=== PATIENT | female | born 2000 | race Caucasian/White ===

== ENCOUNTER 2024-11-03 09:05 | Outpatient (OUT) | payer SELFPAY ==
[2024-11-03 09:57] LABS: Basophils Absolute Auto 0.1 10^3/uL (0.0-0.1); Basophils Percent Auto 1.4 % (0.2-2.0); Eosinophils Absolute Auto 0.1 10^3/uL (0.0-0.7); Hematocrit 41.9 % (36.0-48.0); Hemoglobin 14.4 g/dL (12.0-16.0); Immature Granulocytes Abs Auto 0.01 10^3/uL (0.00-0.03); Immature Granulocytes Pct Auto 0.1 % (0.0-0.5); Lymphocytes Absolute Auto 2.4 10^3/uL (1.2-3.8); Lymphocytes Percent Auto 34.2 % (20.5-60.0); Mean Corpuscular HGB Conc 34.4 g/dL (29.9-35.2); Mean Corpuscular Hemoglobin 30.4 pg (26.7-34.0); Mean Corpuscular Volume 88.6 fL (81.0-99.0); Mean Platelet Volume 10.8 fL (9.5-13.5); Monocytes Absolute Auto 0.4 10^3/uL (0.3-0.8); Monocytes Percent Auto 6.2 % (1.7-12.0); Neutrophils Percent Auto 56.1 % (43.0-75.0); Platelet Count 296 10^3/uL (150-450); Red Blood Count 4.73 10^6/uL (4.20-5.40); Red Cell Distribution Width 11.5 % (11.0-15.0); White Blood Count 7.1 10^3/uL (4.0-11.0)
[2024-11-03 10:23] LABS: Alanine Aminotransferase <6 U/L (14-59); Albumin Globulin Ratio 1.5; Albumin Level 4.6 g/dL (3.4-5.0); Alkaline Phosphatase 56 U/L (46-116); Anion Gap 11.8; Aspartate Amino Transferase 12 U/L (15-37); BUN Creatinine Ratio 15.4; Bilirubin Total 0.6 mg/dL (0.2-1.0); Calcium 9.6 mg/dL (8.5-10.1); Carbon Dioxide 31.1 mmol/L (21.0-32.0); Chloride 102 mmol/L (98-107); Chol HDL Ratio 2.4; Cholesterol 140 mg/dL (<=200); Estimated GFR (African America >60 (>=60 mL/min/1.73m^2); Estimated GFR (Non-African Ame >60 (>=60 mL/min/1.73m^2); Free T3 2.73 pg/mL (2.18-3.98); Globulin 3.1 g/dL; Glucose 87 mg/dL (74-106); HDL Cholesterol 59 mg/dL (40-60); LDL Cholesterol Calculated 66.6 mg/dL; Potassium 3.9 mmol/L (3.5-5.1); Sodium 141 mmol/L (136-145); Thyroid Stimulating Hormone 1.862 uIU/mL (0.358-3.740); Total Protein 7.7 g/dL (6.4-8.2); Triglycerides 72 mg/dL (<=150); VLDL CHOLESTEROL 14.4 mg/dL
[2024-11-03 10:41] LABS: Estimated Average Glucose 105 mg/dL; Glycohemoglobin A1C 5.3 % (4.5-6.2)
== END 2024-11-03 09:06 | disposition home or self-care (01) ==
PROVIDERS: PCP Family Medicine; Visit Provider Family Medicine
DX: K21.9 Gastro-esophageal reflux disease without esophagitis (principal); R55 Syncope and collapse; R73.09 Other abnormal glucose; D64.9 Anemia, unspecified
CPT/HCPCS: 36415; 80053; 80061; 83036; 83540; 84436; 84443; 84481; 85025

== ENCOUNTER 2025-06-27 11:25 | Outpatient (OUT) | payer MEDICAID, SELFPAY ==
--- OUTSIDE RECORDS SUMMARY | 2024-03-02 07:00 | XMS_ITS ---
Author Organization [facility] in [place] Address [address] [place] [address] Care Team Providers Care Hand Alterations Tailor Name Role Phone Mariely Munroe Primary Care Provider [phone] CJ MUNROE Unavailable [phone] REASON FOR VISIT weight loss/near syncopy Encounters Encounter Location Date Provider Diagnosis [id number] [place] [address] 03/02/2024 CJ MUNROE Plan Of Treatment No Information Progress Notes * Randolph PALACIOS LDOB:[birth year] (25 yo F)Acc No.[id number]:03/02/2024 UNLOCKED PROGRESS NOTE Progress Note Patient: Randolph ESCALANTE Provider: Diego Munroe M.D. :2000 A ge:23 Y S ex:Female Date:03/02/2024 Address:[address] [place], [place] [id number] Pcp:Mariely Munroe Subjective: * Chief Complaints: * 1 . Weight loss/near syncopy. * Medical History: Objective: * Vitals: Assessment: Plan: * Treatment: * * Electronic signature of MARIELY MUNROE MD on 06/27/2025 at 11:32 AM EDT Sign off status: Pending Visit Status: N /S N/C (No Show/No Charge) * Provider: Diego Munroe M.D. Date: 03/02/2024 Generated for Franco urbano/Ashwin/Kenaitting on: 1 11:32 AM EDT
--- OUTSIDE RECORDS SUMMARY | 2025-06-27 11:31 | XMS_ITS | Clinical Summary ---
Author Organization [facility] Address [address], [address] [place] [address] Care Team Providers Care Salesperson Burial Needs Name Role Phone Olvin Burch MD Primary Care Provider [phone] Allergies No known active allergies Medications MV & Min w/FA-DHA ( ADULT GUMMY/DHA/FA PO) Take by mouth Active Active Problems Problem Noted Date Diagnosed Date contractions 08/29/2018 Family History Medical History Relation Name Comments Diabetes Maternal Grandmother Relation Name Status Comments Maternal Grandmother Social History Tobacco Use Types Packs/Day Years Used Date Smoking Tobacco: Never Comments No Sex and Gender Information Value Date Recorded Sex Assigned at Not on file Legal Sex Female 9:45 PM EST Gender Identity Not on file Sexual Orientation Not on file Last Filed Vital Signs Vital Sign Reading Time Taken Comments Blood Pressure 128/73 08/29/2018 7:46 PM EST Pulse 95 08/29/2018 7:46 PM EST Temperature 37.1 C (98.8 F) 08/29/2018 8:03 PM EST Respiratory Rate 15 09/28/2014 11:22 AM EST Oxygen Saturation 98% 09/28/2014 11:22 AM EST Inhaled Oxygen Concentration - - Weight 59 kg (130 lb) 08/29/2018 8:03 PM EST Height 157.5 cm (5' 2 ) 08/29/2018 8:03 PM EST Body Mass Index 23.78 08/29/2018 8:03 PM EST Plan of Treatment Not on file Insurance [facility] Advance Directives * Full Code (Latest Code Status on File) Date Activated Date Inactivated Comments 08/29/2018 7:41 PM 08/29/2018 11:22 PM Care Teams Salesperson Burial Needs Relationship Specialty Start Date End Date Olvin Burch MD [address] [place] [address] PCP - General 02/26/13
--- OUTSIDE RECORDS SUMMARY | 2025-06-27 11:31 | XMS_ITS | Encounter Summary ---
Author Organization [facility] Address [id number] [place] [address] Care Team Providers Care Repairer Typewriter Name Role Phone Olvin Burch MD Primary Care Provider [phone] Encounter Details Date Type Department Care Team (Latest Contact Info) Description 06/24/2025 Travel Social History Tobacco Use Types Packs/Day Years Used Date Smoking Tobacco: Former Cigarettes Q uit: 04/15/2018 Vaping/E-cigarettes Smokeless Tobacco: Never Comments:currently vape Alcohol Use Standard Drinks/Week Comments No 0 (1 standard drink = 0.6 oz pur e alcohol) AUDIT-C Answer Date Recorded Frequency of Alcohol Consumption Never 05/28/2020 Average Number of Drinks Not on file 020 Frequency of Binge Drinking Not on file 05/16 Childcare Answer Date Recorded Childcare Unknown 02/24/2019 Employment Answer Date Recorded Employment Unknown 02/24/2019 Hunger Screening Answer Date Recorded Within the past 12 months we worried whether our food would run out before we got money to buy more. Never True 06/24/2025 Within the past 12 months th e food we bought just didn't last and we didn't have money to get more. Never True 06/24/2025 Purpose - Life Answer Date Recorded Purpose and direction in life Unknown Comments No Sex and Gender Information Value Date Recorded Sex Assigned at Not on file Legal Sex Female 11:59 AM EDT Gender Identity Not on file Sexual Orientation Not on file documented as of this encounter Plan of Treatment Not on file documented as of this encounter Visit Diagnoses Not on filedocumented in this encounter Additional Health Concerns Infection Onset Date Last Indicated Resolved Time Respiratory Rule-Out 06/24/2025 06/24/2025 025 12:04 PM EDT documented as of this encounter Care Teams Repairer Typewriter Relationship Specialty Start Date End Date Olvin Burch MD PCP - General 05/11/18 documented as of this encounter
--- OUTSIDE RECORDS SUMMARY | 2025-06-27 11:31 | XMS_ITS | Clinical Summary ---
Author Organization [facility] tem Address [id number] [address] [place] [address] Care Team Providers Care Assistant Tennis Professional Name Role Phone Olvin Burch MD Primary Care Provider [phone] Allergies No known active allergies Medications ondansetron ODT (ZOFRAN-ODT) 4 mg disintegrating tablet Dissolve 1 tablet (4 mg total) on tongue every 8 (eight) hours as needed for nausea for up to 10 doses. 10 tablet 1 Active magnesium citrate (CITROMA) solution Take 296 mL by mouth once for 1 dose. 296 mL 5 06/24/20 25 Active Problems No known active problems Encounters Date Type Department Care Team Description 06/24/2025 10:16 AM EDT - 06/24/2025 12:35 PM EDT Emergency [facility] - Emergency [address] [place] [id number] Carlin Figueroa DO Constipation, unspecified constipation type (Primary Dx) Discharge Disposition: Home 06/24/2025 Travel from Last 3 Months Family History Medical History Relation Name Comments Diabetes Maternal Grandfather Hypertension Maternal Grandfather Diabetes Maternal Grandmother Hypertension Paternal Grandfather Diabetes Paternal Grandmother Hypertension Paternal Grandmother Relation Name Status Comments Maternal Grandfather Maternal Grandmother Paternal Grandfather Paternal Grandmother Social History Tobacco Use Types Packs/Day [...] Sign Reading Time Taken Comments Blood Pressure 98/57 06/24/2025 12:30 PM EDT Pulse 70 06/24/2025 12:30 PM EDT Temperature 36.8 C (98.2 F) 06/24/2025 10:23 AM EDT Respiratory Rate 18 06/24/2025 12:30 PM EDT Oxygen Saturation 100% 06/24/2025 12:30 PM EDT Inhaled Oxygen Concentration - - Weight 44 kg (97 lb) 06/24/2025 10:23 AM EDT Height 157.5 cm (5' 2 ) 03/12/2022 10:25 AM EDT Body Mass Index 17.74 03/12/2022 10:25 AM EDT Plan of Treatment Health Maintenance Due Date Last Done Comments Depression Screening 2014 Chlamydia Screening 01/24/2023 01/24/2022 Pap Smear 2023 DTaP,Tdap and Td Vaccines (7 - Td or Tdap) 05/12/2024 05/12/2014, 05/15/2006, 05/31/2004, Additional history exists Influenza Vaccine 05/16/2025 Adult BMI Screening 06/24/2026 06/24/2025 Tobacco Screening 06/24/2026 06/24/2025 Medical Devices Not on file Procedures Procedure Name Priority Date/Time Associated Diagnosis Comments CT ABDOMEN AND PELVIS W CONT STAT 06/24/2025 11:31 AM EDT POCT , URINE (NUCG) Routine 06/24/2025 10:48 AM EDT POCT NURSING URINE MACROSCOPIC UA Routine 06/24/2025 10:45 AM EDT EXTRA TUBES BLUE TOP Routine 06/24/2025 10:41 AM EDT EXTRA TUBES Routine 06/24/2025 10:41 AM EDT ER EXTRA URINE MARBLE STAT 06/24/2025 10:41 AM EDT ER EXTRA URINE CULTURE STAT 10:41 AM EDT ER EXTRA URINE STAT 06/24/2025 10:41 AM EDT MAGNESIUM STAT 06/24/2025 10:41 AM EDT LACTATE W/ REFLEX STAT 06/24/2025 10: 41 AM EDT LIPASE STAT 06/24/2025 10:41 AM EDT C-REACTIVE PROTEIN STAT 06/24/2025 10 :41 AM EDT COMPREHENSIVE METABOLIC PANEL STAT 06/24/2025 10:41 AM EDT CBC WITH AUTO DIFFERENTIAL STAT 06/24/2025 10:41 AM EDT SARS/FLU A+B/RSV BY NAAT/MOLECULAR (M4RT COLLECTION TUBE) STAT 06/24/2025 10:41 AM EDT CHLAMYDIA/GC BY PCR ANATOLY SWAB Routine 01/24/2022 11:53 AM EDT Pelvic pain from Last 3 Months or Most Recently Relevant to Health Maintenance Results * CT abdomen and pelvis with contrast (06/24/2025 11:31 AM EDT) Anatomical Region Laterality Modality Body, Abdomen, Body Covera N/A Compu kirill Tomography 06/24/2025 11:3 1 AM EDT Narrative 06/24/2025 11:44 AM EDT STUDY: ENHANCED CT OF THE ABDOMEN AND PELVIS CLINICAL INFORMATION: Age: 25 years History: Abdominal pain. PROCEDURE: Enhanced CT examination of the abdomen and pelvis was performed after administration of intravenous contrast. Enteric contrast was not administered. All CT scans at this facility use dose modulation, iterative reconstruction, and/or weight based dosing when appropriate to reduce radiation dose to as low as reasonably achievable. INTRAVENOUS CONTRAST: 100 mL of Omnipaque 300 COMPARISON: CT abdomen/pelvis dated 02/27/2021 FINDINGS: LOWER THORAX: The lung bases are clear. The heart is normal in size. LIVER: Normal in size and configuration. No suspicious mass. BILE DUCTS: No intrahepatic or extrahepatic bile duct dilation. GALLBLADDER: No calcified stones. Normal wall thickness. PANCREAS: Normal parenchymal attenuation. No main pancreatic duct dilation. SPLEEN: Normal parenchymal attenuation. No splenomegaly. ADRENAL GLANDS: No adrenal nodules. KIDNEYS/URETERS: No hydroureteronephrosis. No suspicious renal mass. BLADDER: Unremarkable. REPRODUCTIVE ORGANS: Retroflexed uterus. No adnexal mass. BOWEL: No disproportionate dilation of the small or large bowel. The appendix is unremarkable. Large colonic stool burden. PERITONEUM/RETROPERITONEUM: No fluid collection, ascites, or pneumoperitoneum. LYMPH NODES: No abdominopelvic lymphadenopathy by size criteria. VESSELS: No abdominal aortic aneurysm. ABDOMINAL/PELVIC WALL: Unremarkable. BONES: No suspicious osseous lesions. IMPRESSION: No acute abdominopelvic abnormality. Large colonic stool burden may represent constipation. Recommend clinical correlation. Finalized by Yaneth Medina MD on 06/24/2025 11:44 AM Procedure Note Yaneth Medina MD - 06/24/2025 STUDY: ENHANCED CT OF THE ABDOMEN AND PELVIS CLINICAL INFORMATION: Age: 25 years History: Abdominal pain. PROCEDURE: Enhanced CT examination of the abdomen and pelvis was performedafter administration of intravenous contrast. Enteric contrast was notadministered. All CT scans at this facility use dose modulation, iterativereconstruction, and/or weight based dosing when appropriate to reduceradiation dose to as low as reasonably achievable. INTRAVENOUS CONTRAST: 100 mL of Omnipaque 300 COMPARISON: CT abdomen/pelvis dated 02/27/2021 FINDINGS: LOWER THORAX: The lung bases are clear. The heart is normal in size. LIVER: Normal in size and configuration. No suspicious mass. BILE DUCTS: No intrahepatic or extrahepatic bile duct dilation. GALLBLADDER: No calcified stones. Normal wall thickness. PANCREAS: Normal parenchymal attenuation. No main pancreatic ductdilation. SPLEEN: Normal parenchymal attenuation. No splenomegaly. ADRENAL GLANDS: No adrenal nodules. KIDNEYS/URETERS: No hydroureteronephrosis. No suspicious renal mass. BLADDER: Unremarkable. REPRODUCTIVE ORGANS: Retroflexed uterus. No adnexal mass. BOWEL: No disproportionate dilation of the small or large bowel. Theappendix is unremarkable. Large colonic stool burden. PERITONEUM/RETROPERITONEUM: No fluid collection, ascites, orpneumoperitoneum. LYMPH NODES: No abdominopelvic lymphadenopathy by size criteria. VESSELS: No abdominal aortic aneurysm. ABDOMINAL/PELVIC WALL: Unremarkable. BONES: No suspicious osseous lesions. IMPRESSION: No acute abdominopelvic abnormality. Large colonic stool burden mayrepresent constipation. Recommend clinical correlation. Finalized by Yaneth Medina MD on 06/24/2025 11:44 AM us Carlin Figueroa DO IMG CT ORDERABLES Final Result * POCT , urine (06/24/2025 10:48 AM EDT) POC Urine Negative Negative, Indeterminate 06/24/2025 10:54 AM EDT [facility] Urine 06/24/2025 10:4 8 AM EDT 06/24/2025 10:54 AM EDT us Carlin Figueroa DO POINT OF CARE TEST ORDE ROSALINA Final Result [facility] [address] [place] [address], [place] * POCT Nursing Urine Macroscopic UA (06/24/2025 10:45 AM EDT) POC Urine Specific Nunda 1.015 1.010, 1.015, 1.020, 1.025 06/24/2025 10:47 AM EDT [facility] POC Urine Leukocyte Esterase Negative Negative 06/24/2025 10:47 AM EDT [facility] POC Urine Nitrite Negative Negative 06/24/2025 10:47 AM EDT [facility] POC Urine pH 7.0 5.0, 6.0, 6.5, 7.0, 7.5, 8.0, 8.5, 5.5 06/24/2025 10:47 AM EDT [facility] POC Urine Protein Negative Negative 06/24/2025 10:47 AM EDT [facility] POC Urine Glucose Negative Negative 06/24/2025 10:47 AM EDT [facility] POC Urine Ketones Negative Negative 06/24/2025 10:47 AM EDT [facility] POC Urine Urobilinogen 0.2 E.U./dL 06/24/2025 10:47 AM EDT [facility] POC Urine Bilirubin Negative Negative 06/24/2025 10:47 AM EDT [facility] POC Urine Blood/HGB Negative Negative 06/24/2025 10:47 AM EDT [facility] Urine 06/24/2025 10:4 5 AM EDT 06/24/2025 10:47 AM EDT us Carlin Figueroa DO POINT OF CARE TEST ORDE ROSALINA Final Result [facility] [address] [place] [address], [place] * Extra Urine [place] (06/24/2025 10:41 AM EDT) Extra Tube Auto Resulted 06/24/2025 12:02 PM EDT [facility] Urine Urine specimen collection, clean catch / Unknown 06/24/2025 10:41 AM EDT 06/24/2025 11:08 AM EDT us Carlin Figueroa DO URINE ORDERABLES Final Result Performing Organization Address City/[facility] Co de Phone Number [address] [place] [address], [place] * Extra Urine Culture (06/24/2025 10:41 AM EDT) Extra Tube Auto Resulted 06/24/2025 12:02 PM EDT [facility] Urine Urine specimen collection, clean catch / Unknown 06/24/2025 10:41 AM EDT 06/24/2025 11:08 AM EDT us Carlin Figueroa DO URINE ORDERABLES Final Result Performing Organization Address City/[facility] Co de Phone Number [address] [place] [address], [place] * Light Blue Top (06/24/2025 10:41 AM EDT) Extra Tube Auto Resulted 06/24/2025 12:02 PM EDT [facility] Blood Venous blood / Unknown 06/24/2025 10:41 AM EDT 06/24/2025 10:43 AM EDT us Carlin Figueroa DO LAB BLOOD ORDERABLES Fi nal Result Performing Organization Address City/[facility] Co de Phone Number [address] [place] [address], [place] * Extra Urine (06/24/2025 10:41 AM EDT) Extra Tube Auto Resulted 06/24/2025 12:02 PM EDT [facility] Urine Urine specimen collection, clean catch / Unknown 06/24/2025 10:41 AM EDT 06/24/2025 11:08 AM EDT us Carlin Figueroa DO URINE ORDERABLES Final Result Performing Organization Address [facility]/ZIP Co de Phone Number [address] [place] [address], [place] * Lactate w/ Reflex (06/24/2025 10:41 AM EDT) LACTATE W/REFLEX 1.2 0.4 - 2.0 mmol/L 06/24/2025 11:13 AM EDT [facility] Blood Venous blood / Unknown Port / Unknown 06/24/2025 10:41 AM EDT 06/24/2025 10:43 AM EDT Narrative [facility] - 06/24/2025 11:13 AM EDT Result did not trigger repeat Lactate, re-order if needed. us Carlin Figueroa DO LAB BLOOD ORDERABLES Fi nal Result Performing Organization Address [facility] Co de Phone Number [address] [place] [address], [place] * SARS/FLU A+B/RSV by NAAT/Molecular (M4RT Collection Tube) (06/24/2025 10:41 AM EDT) Pathologist [facility] FLU A PCR Negative Negative 06/24/2025 12:04 PM EDT [facility] FLU B PCR Negative Negative 06/24/2025 12:04 PM EDT [facility] RSV BY PCR Negative Negative 06/24/2025 12:04 PM EDT [facility] SARS COV 2 BY PCR Not Detected Not Detected 06/24/2025 12:04 PM EDT [facility] Swab Nasopharyngeal structure / Unknown 06/24/2025 10:41 AM EDT 06/24/2025 11:08 AM EDT Narrative [facility] - 06/24/2025 12:04 PM EDT The Xpert Xpress SARS-CoV-2/Flu/RSV Plus test is a rapid, multiplexed real-time RT-PCR test intended for the simultaneous qualitative detection and differentiation of SARS-CoV-2, influenza A, influenza B and respiratory syncytial virus (RSV) viral RNA from individuals suspected of respiratory viral infection consistent with COVID-19 by Their healthcare provider. This test has not been validated in asymptomatic patients. The Xpert Xpress SARS-CoV-2 test is intended for use by qualified and trained operators who are performing tests using either [employer] or [employer] Interactive systems and is limited to laboratories that meet the CLIA requirements to perform high and moderate complexity tests. The Xpert Xpress SARS-CoV-2/Flu/RSV Plus is only for use under the Food and Drug Administration's Emergency Use Authorization. Results are for the simultaneous detection and differentiation of SARS-CoV-2, influenza A, influenza B and RSV nucleic acids in clinical specimens. SARS-CoV-2, influenza A, influenza B and RSV RNA identified by this test are generally detectable in upper respiratory samples during the acute phase of infection. Positive results are Indicative of the presence of the identified virus, but do not rule out bacterial infection or co-infection with other pathogens not detected by this test. Clinical correlation with patient history and other diagnostic information is necessary to determine patient infection status. The agent detected may not be the definite cause of disease. Negative results do not preclude SARS-CoV-2, influenza A, influenza B and RSV infection and should not be used as the sole basis for treatment or other patient management decisions. Negative results must be combined with clinical observations, patient history and epidemiological information. An Invalid result may occur with specimen-associated inhibition unable to be resolved with specimen repeat. Fact Sheet for Healthcare Providers: https://www.fda.gov/media/518523/download Fact Sheet for Patients: https://www.fda.gov/media/909491/download Carlin Figueroa DO MICROBIOLOGY - GENERAL ORDERABLES Final Result [facility] [address] [facility] [place] [address], [place] * CBC auto differential (06/24/2025 10:41 AM EDT) WBC 5.4 4 - 11 x10E9/L 06/24/2025 10:54 AM EDT [facility] RBC Count 4.29 3.8 - 5.2 X10E12/L 06/24/2025 10:54 AM EDT [facility] Hemoglobin 13.0 11.7 - 15.5 g/dL 06/24/2025 10:54 AM EDT [facility] Hematocrit 38.5 35 - 47 % 06/24/2025 10:54 AM EDT [facility] MCV 90 80 - 100 fL 06/24/2025 10:54 AM EDT [facility] MCH 30.3 27 - 34 pg 06/24/2025 10:54 AM EDT [facility] MCHC 33.8 32 - 36 g/dL 06/24/2025 10:54 AM EDT [facility] RDW 12.3 11.5 - 15 % 06/24/2025 10:54 AM EDT [facility] Platelet Count 260 150 - 450 X10E9/L 06/24/2025 10:54 AM EDT [facility] MPV 8.6 7 - 12 fL 06/24/2025 10:54 AM EDT [facility] Neutrophils % 57.8 % 06/24/2025 10:54 AM EDT [facility] Lymphocytes % 31.2 % 06/24/2025 10:54 AM EDT [facility] Monocytes % 6.8 % 06/24/2025 10:54 AM EDT [facility] Eosinophils % 3.3 % 06/24/2025 10:54 AM EDT [facility] Basophils % 0.9 % 06/24/2025 10:54 AM EDT [facility] Neutrophils Absolute (A) 3.1 1.5 - 6.6 10*3/uL 06/24/2025 10:54 AM EDT [facility] Lymphocytes Absolute 1.7 1.0 - 3.5 10*3/uL 06/24/2025 10:54 AM EDT [facility] Monocytes Absolute 0.4 0.0 - 0.9 10*3/uL 06/24/2025 10:54 AM EDT [facility] Eosinophils Absolute 0.2 0.0 - 0.4 10*3/uL 06/24/2025 10:54 AM EDT [facility] Basophils Absolute 0.0 0.0 - 0.2 10*3/uL 06/24/2025 10:54 AM EDT [facility] Differential Type AUTOMATED DIFFERENTIAL 06/24/2025 10:54 AM EDT [facility] Blood Venous blood / Unknown Port / Unknown 06/24/2025 10:41 AM EDT 06/24/2025 10:43 AM EDT us Carlin Figueroa DO LAB BLOOD ORDERABLES Fi nal Result Performing Organization Address City/[facility]/ZIP Co de Phone Number [address] [place] [address], [place] * C-reactive protein (06/24/2025 10:41 AM EDT) C REACTIVE PROTEIN <0.5 <=0.7 mg/dL 06/24/2025 11:52 AM EDT [facility] Blood Venous blood / Unknown Port / Unknown 06/24/2025 10:41 AM EDT 06/24/2025 10:43 AM EDT us Carlin Figueroa DO LAB BLOOD ORDERABLES Fi nal Result Performing Organization Address City/[facility]/ZIP Co de Phone Number [facility] [address] [place] [address] [place] [address], [place] * Magnesium (06/24/2025 10:41 AM EDT) MAGNESIUM 2.0 1.8 - 2.6 mg/dL 06/24/2025 11:52 AM EDT [facility] Blood Venous blood / Unknown Port / Unknown 06/24/2025 10:41 AM EDT 06/24/2025 10:43 AM EDT us Carlin Figueroa DO LAB BLOOD ORDERABLES Fi nal Result Performing Organization Address City/[facility] Co de Phone Number [address] [place] [address], [place] * Lipase (06/24/2025 10:41 AM EDT) LIPASE 32 17 - 40 U/L 06/24/2025 11:44 AM EDT [facility] Blood Venous blood / Unknown Port / Unknown 06/24/2025 10:41 AM EDT 06/24/2025 10:43 AM EDT Carlin Figueroa DO LAB BLOOD ORDERABLES Fi nal Result Performing Organization Address City/[facility] Co de Phone Number [address] [place] [address], [place] * Comprehensive metabolic panel (06/24/2025 10:41 AM EDT) SODIUM 137 134 - 146 mmol/L 06/24/2025 11:52 AM EDT [facility] POTASSIUM 4.1 3.5 - 5.0 mmol/L 06/24/2025 11:52 AM EDT [facility] CHLORIDE 102 98 - 109 mmol/L 06/24/2025 11:52 AM EDT [facility] CARBON DIOXIDE 25 22 - 32 mmol/L 06/24/2025 11:52 AM EDT [facility] ANION GAP 10 5 - 15 mmol/L 06/24/2025 11:52 AM EDT [facility] BLOOD UREA NITROGEN 14 5 - 23 mg/dL 06/24/2025 11:52 AM EDT [facility] CREATININE 0.66 0.40 - 1.00 mg/dL 06/24/2025 11:52 AM EDT [facility] Comment:METHOD TRACEABLE TO IDCO STANDARD GLUCOSE 95 65 - 99 mg/dL 06/24/2025 11:52 AM EDT [facility] CALCIUM 9.0 8.5 - 10.5 mg/dL 06/24/2025 11:52 AM EDT [facility] TOTAL PROTEIN 7.0 6.0 - 8.0 g/dL 06/24/2025 11:52 AM EDT [facility] ALBUMIN 4.7 3.2 - 5.3 g/dL 06/24/2025 11:52 AM EDT [facility] ALKALINE PHOSPHATASE 44 39 - 130 U/L 06/24/2025 11:52 AM EDT [facility] AST 18 <=41 U/L 06/24/2025 11:52 AM EDT [facility] ALT 11 <=31 U/L 06/24/2025 11:52 AM EDT [facility] BILIRUBIN,TOTAL 0.6 0.3 - 1.2 mg/dL 06/24/2025 11:52 AM EDT [facility] EGFR Non-Race Dependent >90 >=60 ml/min/1.7 3sq.m 06/24/2025 11:52 AM EDT [facility] Comment: eGFR not reported due to non-numeric value for Creatinine. Reported eGFR is based on the CKD-EPI 2020 equation that does not use a race coefficient. Blood Venous blood / Unknown Port / Unknown 06/24/2025 10:41 AM EDT 06/24/2025 10:43 AM EDT us Carlin Figueroa DO LAB BLOOD ORDERABLES Fi nal Result [facility] [address] [place] [address], [place] * Chlamydia/GC by PCR Anatoly Swab (01/24/2022 11:53 AM EDT) Specimen source CERVICAL 6:18 PM EDT [facility] Chlamydia DNA PCR Negative Negative^N egative 01/25/2022 12:13 PM EDT [facility] Comment: Chlamydia trachomatis not detected by nucleic acid amplification. This does not exclude the possibility of infection because results are dependent on adequate specimen collection. Gonorrhea DNA PCR Negative Negative^N egative 01/25/2022 12:13 PM EDT [facility] Comment: Neisseria gonorrhoeae not detected by nucleic acid amplification. This does not exclude the possibility of infection because results are dependent on adequate specimen collection. GENS 01/24/2022 11:5 3 AM EDT 01/24/2022 6:15 PM EDT Cristina Tapia CRYSTAL GR[facility]ER[facility] MICROBIOLOGY - GENERAL ORDERABLES Final Result [facility] [address] [facility] [place] [address] [facility] [address] [place] [address], [address] [place] [address] from Last 3 Months or Most Recently Relevant to Health Maintenance Insurance MEDICAID [place] Care Teams Assistant Tennis Professional Relationship Specialty Start Date End Date Olvin Burch MD [facility] - General 05/11/18
--- OUTSIDE RECORDS SUMMARY | 2025-06-27 11:32 | XMS_ITS | Patient Health Record ---
Author Organization [facility] in [place] Address [address] [place] [address] Care Team Providers Care Receiving Associate Store Name Role Phone Mihir Burch Primary Care Provider Allergies No Known Allergies Results Component Value Reference Range Notes FREE T3 Reviewed date:11/03/2024 08:06:54 PM Interpretation: Performing Lab: Notes/Report: [facility] , Free T3 2.73 2.18-3.98 pg/mL Performing Lab: see note ML - [facility] LB GLYCOHEMOGLOBIN A1C Reviewed date:11/03/2024 08:06:54 PM Interpretation: Performing Lab: Notes/Report: [facility] , Glycohemoglobin A1C 5.3 4.5-6.2 % > 7.0 ADA THERAPEUTIC TARGET < 7.0 ADA RECOMMENDED LIMIT 4.0 - 6.0 ACTION SUGGESTED Estimated Average Glucose 105 Performing Lab: see note ML - [facility] LB IRON Reviewed date:11/03/2024 08:06:54 PM Interpretation: Performing Lab: Notes/Report: [facility] , Iron 120.0 50.0-170.0 ug/dL Performing Lab: see note ML - [facility] LB LIPID PROFILE Reviewed date:11/03/2024 08:06:54 PM Interpretation: Performing Lab: Notes/Report: [facility] , Triglycerides 72 <=150 mg/dL Cholesterol 140 <=200 mg/dL HDL Cholesterol 59 40-60 mg/dL > or =60 mg/dl - LOW CARDIOVASCULAR RISK <40 mg/dl - HIGH CARDIOVASCULAR RISK LDL Cholesterol Calculated 66.6 100-129 mg/dl NEAR OR ABOVE OPTIMAL <100 mg/dl OPTIMAL 160-189 mg/dl HIGH 130-159 mg/dl BORDERLINE HIGH >190 mg/dl VERY HIGH VLDL CHOLESTEROL 14.4 Chol HDL Ratio 2.4 >11.0 HIGH RISK 3.3 - 4.4 LOW RISK 7.1 - 11.0 MODERATE RISK 4.4 - 7.1 AVERAGE RISK Performing Lab: see note ML - [facility] LB PROF 14(COMP METB) Reviewed date:11/03/2024 08:06:54 PM Interpretation: Performing Lab: Notes/Report: [facility] , Sodium 141 136-145 mmol/L Potassium 3.9 3.5-5.1 mmol/L Chloride 102 98-107 mmol/L Carbon Dioxide 31.1 21.0-32.0 mmol/L Anion Gap 11.8 Glucose 87 74-106 mg/dL Blood Urea Nitrogen 12.0 7.0-18.0 mg/dL Creatinine 0.78 0.55-1.02 mg/dL Estimated GFR ( Stefania >60 >=60 mL/min/1.73m 2 Estimated GFR (Non- Sue >60 >=60 mL/min/1.73m 2 BUN Creatinine Ratio 15.4 Calcium 9.6 8.5-10.1 mg/dL Bilirubin Total 0.6 0.2-1.0 mg/dL Aspartate Amino Transferase 12 15-37 U/L Alanine Aminotransferase <6 14-59 U/L Alkaline Phosphatase 56 46-116 U/L Total Protein 7.7 6.4-8.2 g/dL Albumin Level 4.6 3.4-5.0 g/dL Globulin 3.1 Albumin Globulin Ratio 1.5 Performing Lab: see note ML - [facility] LB T4 Reviewed date:11/03/2024 08:06:54 PM Interpretation: Performing Lab: Notes/Report: [facility] , T4 Thyroxine 8.10 4.80-13.90 ug/dL Performing Lab: see note ML - [facility] LB TSH Reviewed date:11/03/2024 08:06:54 PM Interpretation: Performing Lab: Notes/Report: [facility] , Thyroid Stimulating Hormone 1.862 0.358-3.740 u IU/mL Performing Lab: see note ML - [facility] LB CBC AUTO DIFF Reviewed date:11/03/2024 08:06:54 PM Interpretation: Performing Lab: Notes/Report: [facility] , White Blood Count 7.1 4.0-11.0 10 3/uL Red Blood Count 4.73 4.20-5.40 10 6/uL Hemoglobin 14.4 12.0-16.0 g/dL Hematocrit 41.9 36.0-48.0 % Mean Corpuscular Volume 88.6 81.0-99.0 fL Mean Corpuscular Hemoglobin 30.4 26.7-34.0 pg Mean Corpuscular HGB Conc 34.4 29.9-35.2 g/dL Red Cell Distribution Width 11.5 11.0-15.0 % Platelet Count 296 150-450 10 3/uL Mean Platelet Volume 10.8 9.5-13.5 fL Neutrophils Percent Auto 56.1 43.0-75.0 % Lymphocytes Percent Auto 34.2 20.5-60.0 % Monocytes Percent Auto 6.2 1.7-12.0 % Eosinophils Percent Auto 2.0 0.9-7.0 % Basophils Percent Auto 1.4 0.2-2.0 % Immature Granulocytes Pct Auto 0.1 0.0-0.5 % Neutrophils Absolute Auto 4.0 1.4-6.5 10 3/uL Lymphocytes Absolute Auto 2.4 1.2-3.8 10 3/uL Monocytes Absolute Auto 0.4 0.3-0.8 10 3/uL Eosinophils Absolute Auto 0.1 0.0-0.7 10 3/uL Basophils Absolute Auto 0.1 0.0-0.1 10 3/uL Immature Granulocytes Abs Auto 0.01 0.00-0.03 10 3/uL Performing Lab: see note ML - [facility] LB Reason For Referral No Information Medications Medication SIG (Take, Route, Frequency, Duration) Notes Start Date End Date Status Hyoscyamine Sulfate 0.125 MG 1-2 tabs SL SL every 4 hrs PRN abd pain 06/27/2025 Active Ondansetron 4 MG 1 tablet on the tong ue and allow to dissolve Orally qid 06/27/2025 Active Social History Tobacco Use: Social History Observation Description Date Details (start date - stop date) Current Smoker NA - NA Tobacco Use/Smoking Question Answer Notes Patient is a current every day smoker Alcohol Screen (Audit-C) Question Answer Notes Did you have a drink containing alcohol in the p ast year? No Points 0 Interpretation Negative Problems Problem Type SNOMED Code ICD Code Onset Dates Problem Status W/U Status Risk Notes Problem Tension-type headache (732097634) Tension-type headache, unspecified, not intractable (G44.209) Active confirmed Problem Gastroesophageal reflux disease (659942895) GERD (gastroesophageal reflux disease) (K21.9) Active confirmed Problem Anxiety (43333453) Anxiety (F41.9) Active confi rmed Problem Eczema (69788471) Eczema (L30.9) Active confirm ed Problem Back pain (891439324) Back pain (M54.9) Active confirmed Problem Well adult (676298515) Well adult (Z00.00) Active confirmed Problem Near syncope (923709554) Near syncope (R55) Active confirmed Problem Seasonal allergic rhinitis (664316949) Allergic rhinitis, seasonal (J30.2) Active confirmed Problem Menometrorrhagia (696851250) Menometrorrhagia (N92.1) Active confirmed Vital Signs Temperature 97.5 degrees Fahrenheit 06/27/2025 Blood pressure diastolic 60 mm Hg 06/27/2025 Height 61 in 06/27/2025 Blood pressure systolic 106 mm Hg 06/27/2025 Weight 100.2 lbs 06/27/2025 BMI 18.93 kg/m2 06/27/2025 Encounters Encounter Location Date Provider Diagnosis [facility] [address] [place] [address] 06/27/2025 Mihir Hoy Gastroenteritis K52. [address] [place] [address] 11/02/2024 Mihir Burch GERD (gastroesophage al reflux disease) K21.9 and Near syncope R[address] [place] [address] 06/27/2025 Mihir Negretey [facility] [address] [place] [address] 11/03/2024 Mihir Burch Assessments Encounter Date Diagnosis (ICD Code) Assessment Notes Treatment Notes Treatment Clinical Notes Section Notes 11/02/2024 GERD (gastroesophageal reflux disease) (ICD-10 - K21.9) 11/02/2024 Near syncope (ICD-10 - R55) 06/27/2025 Gastroenteritis (ICD-10 - K52.9) Get plenty of rest. Stay hydrated by sucking on ice chips or taking small sips of water. You can also try drinking clear soda, clear broths or noncaffeinated sports drinks. Stop eating solid foods for a few hours to let your stomach settle. East back into eating by eating bland, ikew-xu-dbzjfb foods like crackers, toast, gelatin, bananas, rice and chicken. Try to avoid foods/substances including dairy products, caffeine, alcohol, nicotine and fatty or highly seasoned foods. Medications such as ibuprofen or tylenol can make your stomach more upset, so use sparingly if at all. Also avoid coya-ldl-yammikg anti-diarrheal medications because it can make it harder for your body to eliminate the virus. Plan Of Treatment Pending Test Test Name Order Date HEMOGLOBIN A1C (GLYCO) 11/02/2024 IRON, TOTAL 11/02/2024 LIPID PANEL (CHOL/TRIG/HDL/LDL) 11/02/19 25 CBC WITH DIFF 11/02/2024 Urinalysis Microscopic 06/27/2025 AMYLASE 06/27/2025 CBC AUTO DIFF 06/27/2025 CULTURE URINE 06/27/2025 LIPASE 06/27/2025 PROF 14(COMP METB) 06/27/2025 XR ABD FLAT UP_PA CH 06/27/2025 THYROID PANEL (T4/TSH/FREE T3) 5 CMP (COMP MET GA) w/eGFR CKD-EPI 2024 Insurance Providers Payer Name Payer Address Payer Phone Subscriber Number Group Number Insured Name Patient Relationship to Insured Coverage Start Date Coverage End Date [employer] [address] [place] [address] [id number] Randolph Phillips Self - patient is the insured Medical (General) History Medical History History ICD Code Well adult Z00.00 Back pain M54.9 Tension-type headache, unspecified, not intractable G44.209 Nausea R11.0 Anxiety F41.9 Menometrorrhagia N92.1 Tinea versicolor B36.0 Cellulitis L03.90 Syncope R55 Gastritis K29.70 Bite 959.9 Spider bite T63.301A Dysuria R30.0 RB (rectal bleeding) K62.5 Well child visit Z00.129 Allergic rhinitis, seasonal J30.2 Sinusitis J32.9 Surgical History Surgery Date(Month/Year) [place] [facility] T&A
--- OUTSIDE RECORDS SUMMARY | 2025-06-27 11:33 | XMS_ITS | Clinical Summary ---
Author Organization [facility] Address [address] [place] [address] Care Team Providers Care Digitizer Operator Name Role Phone Olvin Burch MD Primary Care Provider [phone] Allergies No known active allergies Medications No known medications Active Problems Problem Noted Date Diagnosed Date Obesity: body mass index of 30.0-34.9 05/02/2020 Macromastia 05/02/2020 Chronic back pain 05/02/2020 Social History Tobacco Use Types Packs/Day Years Used Date Smoking Tobacco: Every Day Smokeless Tobacco: Never Comments Unknown Sex and Gender Information Value Date Recorded Sex Assigned at Not on file Legal Sex Female 9:15 AM EDT Gender Identity Not on file Sexual Orientation Not on file Last Filed Vital Signs Vital Sign Reading Time Taken Comments Blood Pressure 112/75 05/02/2020 2:34 PM EDT Pulse 86 05/02/2020 2:34 PM EDT Temperature 37.1 C (98.7 F) 05/02/2020 2:34 PM EDT Respiratory Rate - - Oxygen Saturation - - Inhaled Oxygen Concentration - - Weight 75.4 kg (166 lb 3.2 oz) 05/02/2020 2:34 P M EDT Height 154.9 cm (5' 1 ) 05/02/2020 2:34 PM EDT Body Mass Index 31.4 05/02/2020 2:34 PM EDT Plan of Treatment Health Maintenance Due Date Last Done Comments GONORRHEA SCREEN 2002 HEPATITIS C VIRUS SCREENING 2002 HIV SCREENING DISCUSSION 2017 HPV VACCINE ADOL (1 - 3-dose series) 2017 HPV VACCINE (1 - 3-dose series) 2017 CHLAMYDIA SCREEN 2018 CERVICAL CANCER SCREENING DISCUSSION 2023 TETANUS 05/12/2024 05/12/2014 COVID-19 VACCINE ( season) 2025 INFLUENZA VACCINE (#1) 2025 HEP B VACCINE Completed 2002, 06/15, 2002 PNEUMOCOCCAL VACCINE SERIES Aged Out 05/16, 07/14/2003, 05/23/2003, Additional history exists No longer eligible based on patient's age to complete this topic TDAP (ADULT) Completed 05/12/2014 Insurance [facility] Plan Care Teams Digitizer Operator Relationship Specialty Start Date End Date Olvin Burch MD PCP - General Family Medicine 05/04/20
--- OUTSIDE RECORDS SUMMARY | 2025-06-27 11:34 | XMS_ITS | CCD ---
Author Organization [facility] Inform ion Partnership [facility] Care Team Providers Care Underwater Photographer Name Role Phone ISABELLE GONZALEZ Admitting Unavailable ISABELLE GONZALEZ Attending Unavailable CJ MUNROE Primary Care Unavailable Rossy Munroe Primary Care Provider PAY, DR GARCES Admitting Unavailable YU MACE Primary Care Unavailable PAY, DR GARCES Attending Unavailable YU MACE Primary Care Unavailable YU MACE Attending Unavailable YU MACE Admitting Unavailable YU MACE Primary Care Unavailable YU MACE Consulting Unavailable YU MACE Attending Unavailable YU MACE Admitting Unavailable CJ MUNROE Primary Care Unavailable VICKI DUMONT Attending Unavailab le Problems Active Problems Problem Classification Problem Date Documented Da te Episodic/Chronic Abdominal pain (1 source) Abdominal pain Onset: 06-24-2025 Episodic Immunizations and screening for infectious disease (4 sources) Encounter for screening for infections with a predominantly sexual mode of transmission; Translations: [ENC SCREEN INFECTIONS SEXL TRANSMS] Onset: 07-16-2021 Episodic Other gastrointestinal disorders (1 source) Constipation, unspecified; Translations: [Constipation, unspecified] Onset: 06-24-2025 Episodic Other nutritional; endocrine; and metabolic disorders (1 source) Obese class I; Translations: [Obesity (BMI 30.0-34.9)] Onset: 05-02-2020 05-02-2020 Residual codes; unclassified (4 sources) Procedure and treatment not carried out due to patient leaving prior to being seen by health care provider; Translations: [PROC AND TX NOT CARRIED OUT PT LEAVE] Onset: 06-23-2021 Episodic Unclassified (1 source) Abdominal Pain - sent over by urgent care Onset: 06-24-2025 Past or Other Problems Problem Classification Problem Date Documented Da te Episodic/Chronic Nonmalignant breast conditions (2 sources) Large breast; Translations: [Macromastia] Onset: 05-02-2020 05-02-2020 Episodic Residual codes; unclassified (2 sources) Chronic back pain ; Translations: [Chronic back pain, unspecified back location, unspecified back pain laterality] Onset: 05-02-2020 05-02-2020 Episodic Results Test Name Value Interpretation Reference Range Facil ity C-REACTIVE PROTEINon 025 CRP [Mass/Vol] mg/L Normal <=0.7 [facility] Comment on above: Performed By: #### C RP #### [address] [address] VIR CBC WITH AUTO DIFFERENTIALon 06-24-2025 BASOPHILS ABSOLUTE COUNT (10*3/UL) BY AUTOMATED COUNT 0.0 10*3/uL Normal 0.0-0.2 [facility] Comment on above: Performed By: #### C BCA #### [address] [address] VIR BASOPHILS RELATIVE PERCENT BY AUTOMATED COUNT 0.9 % Normal [facility] Comment on above: Performed By: #### C BCA #### [address] [address] VIR CELLAVISION DIFFERENTIAL TYPE AUTOMATED DIFFERENTIAL Normal [facility] Comment on above: Performed By: #### C BCA #### [address] [address] VIR Eosinophils (Bld) [#/Vol] 0.2 10*3/uL Normal 0.0-0.4 [facility] Comment on above: Performed By: #### C BCA #### [address] [address] VIR EOSINOPHILS RELATIVE PERCENT BY AUTOMATED COUNT 3.3 % Normal [facility] Comment on above: Performed By: #### C BCA #### [facility] ([address] [address] VIR Erythrocyte distribution width (RBC) [Ratio] 12.3 % Normal 11.5-15 [facility] Comment on above: Performed By: #### C BCA #### [facility] ([address] [address] VIR Hematocrit (Bld) [Volume fraction] 38.5 % Normal 35-47 [facility] Comment on above: Performed By: #### C BCA #### [facility] ([address] [address] VIR Hemoglobin (Bld) [Mass/Vol] 13.0 g/dL Normal 11.7-15.5 [facility] Comment on above: Performed By: #### C BCA #### [address] [address] VIR LYMPHOCYTES ABSOLUTE COUNT (10*3/UL) BY AUTOMATED COUNT 1.7 10*3/uL Normal 1.0-3.5 [facility] Comment on above: Performed By: #### C BCA #### [facility] ([address] [address] VIR LYMPHOCYTES RELATIVE PERCENT BY AUTOMATED COUNT 31.2 % Normal [facility] Comment on above: Performed By: #### C BCA #### [facility] ([address] [address] VIR MCH (RBC) [Entitic mass] 30.3 pg Normal 27-34 [facility] Comment on above: Performed By: #### C BCA #### [facility] ([address] [address] VIR MCHC (RBC) [Mass/Vol] 33.8 g/dL Normal 32-36 [facility] Comment on above: Performed By: #### C BCA #### [facility] ([address] [place] [address] VIR MCV (RBC) [Entitic vol] 90 fL Normal 80-100 [facility] Comment on above: Performed By: #### C BCA #### [facility] ([facility]) [address] [place] [address]. [place] [address] VIR MONOCYTES ABSOLUTE COUNT (10*3/UL) BY AUTOMATED COUNT 0.4 10*3/uL Normal 0.0-0.9 [facility] Comment on above: Performed By: #### C BCA #### [facility] ([facility]) [address] [place] [address]. [place] [address] VIR MONOCYTES RELATIVE PERCENT BY AUTOMATED COUNT 6.8 % Normal [facility] Comment on above: Performed By: #### C BCA #### [facility] ([address] [place] [address] VIR NEUTROPHILS ABSOLUTE COUNT BY AUTOMATED COUNT 3.1 10*3/uL Normal 1.5-6.6 [facility] Comment on above: Performed By: #### C BCA #### [facility] ([address] [address] VIR NEUTROPHILS RELATIVE PERCENT BY AUTOMATED COUNT 57.8 % Normal [facility] Comment on above: Performed By: #### C BCA #### [facility] ([address] [place] [address] VIR Platelet mean volume (Bld) [Entitic vol] 8.6 fL Normal 7-12 [facility] Comment on above: Performed By: #### C BCA #### [facility] ([address] [place] [address] VIR Platelets (Bld) [#/Vol] 260 10*3/uL Normal 150-450 [facility] Comment on above: Performed By: #### C BCA #### [facility] ([address] [place] [address] VIR RBC COUNT 4.29 X10E12/L Normal 3.8-5.2 [facility] Comment on above: Performed By: #### C BCA #### [facility] ([address] [place] [address] VIR WBC (Bld) [#/Vol] 5.4 10*3/uL Normal 4-11 [facility] Comment on above: Performed By: #### C BCA #### [facility] ([address] [place] [address] VIR COMPREHENSIVE METABOLIC PANE Simone 06-24-2025 Albumin [Mass/Vol] 4.7 g/dL Normal 3.2-5.3 [facility] Comment on above: Performed By: #### C MP #### [facility] ([address] [place] [address] VIR ALP [Catalytic activity/Vol] 44 U/L Normal 39-130 [facility] Comment on above: Performed By: #### C MP #### [facility] ([address] [place] [address] VIR ALT [Catalytic activity/Vol] 11 U/L Normal <=31 [facility] Comment on above: Performed By: #### C MP #### [facility] ([address] [place] [address] VIR Anion gap [Moles/Vol] 10 mmol/L Normal 5-15 [facility] Comment on above: Performed By: #### C MP #### [facility] ([address] [place] [address] VIR AST [Catalytic activity/Vol] 18 U/L Normal <=41 [facility] Comment on above: Performed By: #### C MP #### [facility] ([address] [place] [address] VIR Bilirubin [Mass/Vol] 0.6 mg/dL Normal 0.3-1.2 [facility] Comment on above: Performed By: #### C MP #### [facility] ([address] [place] [address] VIR Calcium [Mass/Vol] 9.0 mg/dL Normal 8.5-10.5 [facility] Comment on above: Performed By: #### C MP #### [facility] ([address] [place] [address] VIR Chloride [Moles/Vol] 102 mmol/L Normal 98-109 [facility] Comment on above: Performed By: #### C MP #### [facility] ([address] [place] [address] VIR CO2 [Moles/Vol] 25 mmol/L Normal 22-32 [facility] Comment on above: Performed By: #### C MP #### [facility] ([address] [place] [address] VIR Creatinine [Mass/Vol] 0.66 mg/dL Normal 0.40-1.00 [facility] Comment on above: Result Comment: METH OD TRACEABLE TO IDMS STANDARD Performed By: #### C MP #### [facility] ([address] [address] VIR EGFR (CKD-EPI) NON-RACE DEPENDENT >^90 Normal >=60 [facility] Comment on above: Result Comment: eGFR not reported due to non-numeric value for Creatinine. Reported eGFR is based on the CKD-EPI 2021 equation that does not use a race coefficient. Performed By: #### C MP #### [facility] ([address] [place] [address] VIR Glucose [Mass/Vol] 95 mg/dL Normal 65-99 [facility] Comment on above: Performed By: #### C MP #### [facility] ([address] [address] VIR Potassium [Moles/Vol] 4.1 mmol/L Normal 3.5-5.0 [facility] Comment on above: Performed By: #### C MP #### [facility] ([facility]) [address] [place] [address] VIR Protein [Mass/Vol] 7.0 g/dL Normal 6.0-8.0 [facility] Comment on above: Performed By: #### C MP #### [facility] ([facility]) [address] [place] [address] [place] [address] VIR Sodium [Moles/Vol] 137 mmol/L Normal 134-146 [facility] Comment on above: Performed By: #### C MP #### [facility] ([facility]) [address] [place] [address] [place] [address] VIR Urea nitrogen [Mass/Vol] 14 mg/dL Normal 5-23 [facility] Comment on above: Performed By: #### C MP #### [facility] ([facility]) [address] [place] [address] [place] [address] ABDOMEN AND PELVIS W CONT on 06-24-2025 CT ABDOMEN AND PELVIS W CONT CT ABDOMEN AND PELVIS W CONT STUDY: ENHANCED CT OF THE ABDOMEN AND [...] ADRENAL GLANDS: No adrenal nodules. KIDNEYS/URETERS: No hydroureteronephrosis . No suspicious renal mass. BLADDER: Unremarkable. REPRODUCTIVE ORGANS: Retroflexed uterus. No adnexal mass. BOWEL: No disproportionate dilation of the small or large bowel. The appendix is unremarkable. Large colonic stool burden. PERITONEUM/RETROPERIT ONEUM: No fluid collection, ascites, or pneumoperitoneum. LYMPH NODES: No abdominopelvic lymphadenopathy by size criteria. VESSELS: No abdominal aortic aneurysm. ABDOMINAL/PELVIC WALL: Unremarkable. BONES: No suspicious osseous lesions. IMPRESSION: No acute abdominopelvic abnormality. Large colonic stool burden may represent constipation. Recommend clinical correlation. Finalized by Yaneth Medina MD on 06/24/2025 11:44 AM Normal [facility] LACTATE W/ REFLEXon 06-24-20 25 LACTATE W/REFLEX 1.2 mmol/L Normal 0.4-2.0 [facility] Comment on above: Order Comment: Resul t did not trigger repeat Lactate, re-order if needed. Performed By: #### L ACTS #### [address] [place] [address] VIR LIPASEon 06-24-2025 Lipase [Catalytic activity/Vol] 32 U/L Normal 17-40 [facility] Comment on above: Performed By: #### L IPA #### [facility] ([address] [place] [address] VIR MAGNESIUMon 06-24-2025 Magnesium [Mass/Vol] 2.0 mg/dL Normal 1.8-2.6 [facility] Comment on above: Performed By: #### M G #### [address] [place] [address] VIR POCT NURSING URINE MACROSCOP IC UAon 06-24-2025 BILIRUBIN SYED Negative Normal Negative [facility] Comment on above: Performed By: #### N UM #### [address] [place] [address] VIR BLOOD/HGB SYED Negative Normal Negative [facility] Comment on above: Performed By: #### N UM #### [facility] ([place] [address] [place] [address] VIR GLUCOSE SYED Negative Normal Negative [facility] Comment on above: Performed By: #### N UM #### [facility] ([place] [address] [place] [address] VIR KETONES SYED Negative Normal Negative [facility] Comment on above: Performed By: #### N UM #### [facility] ([place] [address] [place] [address] VIR LEUKOCYTE ESTERASE SYED Negative Normal Negative [facility] Comment on above: Performed By: #### N UM #### [facility] ([address] [place] [address] VIR NITRITE SYED Negative Normal Negative [facility] Comment on above: Performed By: #### N UM #### [facility] ([place] [address] [place] [address] VIR PH SYED 7.0 Normal 5.0, 6.0, 6.5, 7.0, 7.5, 8.0, 8.5, 5.5 [facility] Comment on above: Performed By: #### N UM #### [facility] ([place] [address] [place] [address] VIR PROTEIN SYED Negative Normal Negative [facility] Comment on above: Performed By: #### N UM #### [facility] ([place] [address] [place] [address] VIR SPECIFIC GRAVITY SYED 1.015 Normal 1.010, 1.015, 1.020, 1.025 [facility] Comment on above: Performed By: #### N UM #### [facility] ([place] [address] [place] [address] VIR UROBILINOGEN SYED 0.2 E.U./dL Normal [facility] Comment on above: Performed By: #### N UM #### [facility] ([facility]) [address] [place] [address] VIR POCT , URINE (NUCG) on 06-24-2025 Beta HCG ( test) Ql (U) Negative Normal Negative, Indeterminate [facility] Comment on above: Performed By: #### N UCG #### [facility] ([facility]) [address] [place] [address] VIR SARS/FLU A+B/RSV BY NAAT/MOL ECULAR (M4RT COLLECTION TUBE)on 06-24-2025 SARS/FLU A+B/RSV BY NAAT/MOLECULAR (M4RT COLLECTION TUBE) FLU A PCR Negative FLU B PCR Negative RSV BY PCR Negative SARS COV 2 BY PCR Not Detected Normal Not Detected [facility] Comment on above: Order Comment: The X Nearpod Xpress SARS-CoV-2/Flu/RSV Plus test is a rapid, [...] operators who are performing tests using either GeneXNearpod DX or GeneDhf Taxiity systems and is limited to laboratories that [...] specimen repeat. Fact Sheet for Healthcare Providers: https://www.fda.gov/media/403012/download Fact Sheet for Patients: https://www.fda.gov/media/896896/download Performed By: #### C OVFLR #### [facility] ([facility]) [address] [place] [address]. [place] [address] VIR CHLAMYDIA , NISSERIA, VAGINA LIS NAAon 07-18-2021 Chlamydia by [place] Negative Normal Negative [facility] Comment on above: Performed By: #### C TVNGNA #### [facility] [address] [address] [address] Bev Johnson Gonococcus by [place] Negative Normal Negative [facility] Comment on above: Performed By: #### C TVNGNA #### [facility] [address] [address] [address] Bev Johnson Trich vag by [place] Negative Normal Negative [facility] Comment on above: Performed By: #### C TVNGNA #### [facility] [address] [address] [address] Bev Johnson Urinalysis, Routineon 2017 Acetoacetic Acid,Ur Negative Normal NEG [facility] Comment on above: Performed By: #### U A #### [address] [place] [address] Bilirubin, SemiQt,Ur Negative Normal NEG [facility] Comment on above: Performed By: #### U A #### [address] [place] [address] Color (U) YELLOW Normal YEL [facility] Comment on above: Performed By: #### U A #### [address] [place] [address] Glucose Ql (U) Negative Normal NEG [facility] in Hospital Comment on above: Performed By: #### U A #### [address] [place] [address] Hemoglobin, Ur Negative Normal NEG [facility] Comment on above: Performed By: #### U A #### [address] [place] [address] Leukocyte esterase Test strip Ql (U) Negative Normal NEG [facility] Comment on above: Performed By: #### U A #### [address] [place] [address] Nitrite,Ur Negative Normal NEG [facility] Comment on above: Performed By: #### U A #### [address] [place] [address] pH (U) 7.0 [pH] Normal 5.0-9.0 [facility] Comment on above: Performed By: #### U A #### [address] [place] [address] Protein Ql (U) Negative Normal NEG [facility] Comment on above: Performed By: #### U A #### [address] [place] [address] Specific gravity (U) [Rel density] 1.010 Normal 1.010-1.020 [facility] Comment on above: Performed By: #### U A #### [address] [place] [address] Turbidity CLEAR Normal CLEAR [facility] Comment on above: Performed By: #### U A #### [address] [place] [address] Urobilinogen,Ur Normal Normal NORM [facility] Comment on above: Performed By: #### U A #### [address] [place] [address] Comment NOT REPORTED Normal [facility] Comment on above: Performed By: #### U A #### [address] [place] [address] Vital Signs Date Time Vital Sign Value Performing Clinician Beau dawn 05-02-2020 14:34-0400 BMI (Body Mass Index) 31.4 kg/m2 [facility] 05-02-2020 14:34-0400 Body Temperature 98.71 [degF] [facility] 05-02-2020 14:34-0400 Body weight 75.39 kg [facility] 05-02-2020 14:34-0400 BP Diastolic 75 mm[Hg] [facility] 05-02-2020 14:34-0400 BP Systolic 112 mm[Hg] [facility] 05-02-2020 14:34-0400 Height 154.9 cm [facility] 05-02-2020 14:34-0400 Pulse (Heart Rate) 86 /min [facility] Encounters Encounter Date Encounter Type Care Provider Facility Start: 06-24-2025 End: 06-24-2025 Emergency department patient visit [facility] Start: 08-08-2021 ambulatory YU MACE Facility:[facility] 1 Start: 07-16-2021 End: 07-16-2021 ambulatory YU MACE Facility:[facility] Start: 06-23-2021 End: 06-23-[address] MILI TIERNEY Facility:[facility] Start: 05-02-2020 End: 05-02-2020 Office outpatient new 30 minutes Lala Susan Work Phone: [facility] Comment on above: Macromastia (Primary Dx); Chronic back pain, unspecified back location, unspecified back pain laterality Start: 08-29-2018 End: 08-29-2018 Patient encounter procedure ISABELLE GONZALEZ [facility] Procedures Date Procedure Procedure Detail Performing Clinician Start: 08-29-2018 DISCHARGE PATIENT MICHELLE GONZALEZ Start: 08-29-2018 PATIENT STATUS (DIRECT) ISABELLE GONZALEZ Start: 08-29-2018 ASSESS HEART TONES ISABELLE GONZALEZ Start: 08-29-2018 CONTRACTION -MONITORING ISABELLE GONZALEZ Start: 08-29-2018 Culture bacterial qu anttative colony count urine ISABELLE GONZALEZ Start: 08-29-2018 DIET CLEAR LIQUID MICHELLE GONZALEZ Start: 08-29-2018 FULL CODE ISABELLE [facility] Start: 08-29-2018 MONITOR HEART TONES ISABELLE GONZALEZ Start: 08-29-2018 NOTIFY PHYSICIAN (SPECIFY) ISABELLE GONZALEZ Start: 08-29-2018 POCT GLUCOSE ISABELLE M[facility]INS [facility] Start: 08-29-2018 VITAL SIGNS ISABELLE [facility] Start: 08-29-2018 Urnls dip stick/tabl et rgnt auto w/o microscopy ISABELLE GONZALEZ Plan of Treatment Date Care Activity Detail Author Start: 05-16-2020 Influenza vaccination INFLUENZA VACC INE (#1) [facility] Start: 2020 Tetanus vaccination TETANUS [facility] Start: 2018 Meningococcal conjug ate vaccination MCV4 VACCINE (1 - 2-dose series) [facility] Start: 2018 Screening for Chlamy kalani trachomatis CHLAMYDIA SCREEN [facility] Start: 2015 HIV screening HIV SCREENING DISCUSSION [facility] Start: 2013 Vaccination for wyatt n papillomavirus HPV VACCINE ADOL (1 - 2-dose series) [facility] Start: 2002 GONORRHEA SCREEN GONORRHEA SCREEN [facility] Payers Date Payer Category Payer Unknown [facility] [id number] 2016-Present [id number] 2002 Unknown [id number] 2002 Unknown [id number] 2002 Unknown [id number] 1981 Unknown [id number] 1981 Unknown [id number] 1959 Self-pay [id number] 1959 Unknown [id number] Social History Date Type Detail Facility Start: 05-02-2020 Tobacco smoking stat [facility] Current every day smoker [facility] Start: 05-02-2020 Tobacco use and exposure [facility] Sex Assigned At Not on file [facility] Summary Purpose Family History No Family History Records FoundNo Family History Records FoundNo Family History Records Found Advance Directives No Advanced Directives Records FoundNo Advanced Directives Records FoundNo Advanced Directives Records Found History of Present Illness * Lala Hutchins MD - 05/02/2020 2:00 PM EDT Subjective: Carey Palacios is an 20 y.o. female who presents for evaluation for Breast reduction consult. Pt c/olower back pain. Pt states that she takes NSAIDs and uses heat to try to alleviate pain.. No Known Allergies No current outpatient medications on file. No current facility-administered medications for this visit. No past medical history on file. Past Surgical History: Procedure Laterality Date TONSILLECTOMY ADENOIDECTOMY 2006 History reviewed. No pertinent family history. Social History Socioeconomic History Marital status: Single Spouse name: Not on file Number of children: Not on file Years of education: Not on file Highest education level: Not on file Occupational History Not on file Social Needs Financial resource strain: Not on file Food insecurity Worry: Not on file Inability: Not on file Transportation needs Medical: Not on file Non-medical: Not on file Tobacco Use Smoking status: Current Every Day Smoker Smokeless tobacco: Never Used Substance and Sexual Activity Alcohol use: Not on file Drug use: Not on file Sexual activity: Not on file Lifestyle Physical activity Days per week: Not on file Minutes per session: Not on file Stress: Not on file Relationships Social connections Talks on phone: Not on file Gets together: Not on file Attends spiritism service: Not on file Active member of club or organization: Not on file Attends meetings of clubs or organizations: Not on file Relationship status: Not on file Intimate partner violence Fear of current or ex partner: Not on file Emotionally abused: Not on file Physically abused: Not on file Forced sexual activity: Not on file Other Topics Concern Not on file Social History Narrative Not on file Review of Systems Pertinent items are noted in HPI. General Plastics Review of Systems: Do you have any of the following: Chills, Fatigue, Fever or Night Sweats: no. Ear pain or eye discharge: no. Hearing loss or visual changes: no. Sore throat or chronic cough: no. Shortness of breath: no. Chest pain, swelling, or heart palpitations: no. Abdominal pain: no. Constipation or diarrhea: no. Heartburn or Nausea: no. Rash or skin problems: no. Dizziness or numbness: no. Headaches or Migraines: no. Seizures: no. Joint pain, joint swelling or muscle weakness: no. Bruise or bleed easily: no. Any swollen lymph nodes: no. Objective: BP 112/75 (BP Location: Left arm, BP Position: Sitting) Pulse 86 Temp 98.7 F (37.1 C) (Temporal) Ht 1.549 m (5' 1 ) Wt 75.4 kg (166 lb 3.2 oz) BMI 31.40 kg/m Smoking Status Current Every Day Smoker Patient with large pendulous breasts bilaterally. There are no palpable masses or axillary adenopathy. Moderates history of both breasts. Enlarged areola Hypertrophy of the trapezius Assessment: Patient for consideration of breast reduction Plan: The procedure of breast reduction was thoroughly reviewed with the patient. The patient's goals and expectation for the surgery were reviewed, as well as the reasonable expected outcome. The expected pre-, intra-, and post- operative course was reviewed. Patient currently date every day. He indicated she would have to be off all nicotine products for minimum of 3 months before being considered a candidate for breast reduction surgery. The pt is to call with any further problems or questions, otherwise I will see them back PRN. * Stella Ibanez - 05/02/2020 2:00 PM EDT General Plastics Review of Systems: Do you have any of the following: Chills, Fatigue, Fever or Night Sweats: no. Ear pain or eye discharge: no. Hearing loss or visual changes: no. Sore throat or chronic cough: no. Shortness of breath: no. Chest pain, swelling, or heart palpitations: no. Abdominal pain: no. Constipation or diarrhea: no. Heartburn or Nausea: no. Rash or skin problems: no. Dizziness or numbness: no. Headaches or Migraines: no. Seizures: no. Joint pain, joint swelling or muscle weakness: no. Bruise or bleed easily: no. Any swollen lymph nodes: no. documented in this encounter Assessments Diagnosis Macromastia- Primary Hypertrophy of breast Chronic back pain, unspecified back location, unspecified back pain laterality Additional Source Comments INFORMATION SOURCE (unrecogn ized section and content) DATE CREATED AUTHOR 06/21/2019 [facility] DATE CREATED AUTHOR AUTHOR'S ORGANIZ ATION 08/10/2021 [facility] DATE CREATED AUTHOR AUTHOR'S ORGANIZ ATION 06/26/2025 [facility] Reason for Visit (unrecogniz ed section and content) Reason Comments New Patient Breast reduction con sult. Pt c/o lower back pain. Pt states that she takes NSAIDs and uses heat to try to alleviate pain. FOR RECORDS PERTAINING TO PATIENTS WHO ARE OR HAVE BEEN ENROLLED IN A CHEMICAL DEPENDENCY/SUBSTANCEABUSE PROGRAM, SOME INFORMATION MAY BE OMITTED. This clinical summary was aggregated from multiple sources. Caution should be exercised in using it in the provision of clinical care. This summary normalizes information from multiple sources, and as a consequence, information in this document may materially change the coding, format and clinical context of patient data. In addition, data may be omitted in some cases. CLINICAL DECISIONS SHOULD BE BASED ON THE PRIMARY CLINICAL RECORDS. [employer] provides no warranty or guarantee of the accuracy or completeness of information in this document.
--- NOTE | 2025-06-27 11:40 | XR_ITS ---
The [address] [address] Patient Name: CAREY PALACIOS MRN: [id number] date: 2000 Sex: F Assigned Patient Location: LAB Current Patient Location: LAB Accession/Order Number: [id number] Exam Date: 06/27/2025 12:05 Report Date: 06/27/2025 12:48 At the request of: CJ MUNROE MD Procedure: XR acute abdomen series ACUTE ABDOMEN SERIES WITH PA CHEST: CLINICAL HISTORY: Lumbar upper quadrant pain and gas. Gastroenteritis K52.9 COMPARISON: 12/27/2011 The chest film shows no acute cardiopulmonary findings. Supine and upright views of the abdomen and pelvis demonstrate mild air within the stomach. A small amount of air and stool are present within the colon. There is no small bowel dilatation, free air or significant air-fluid levels. No soft tissue masses or suspect renal calculi are seen. There is slight reverse S-shaped thoracolumbar scoliotic curvature. XR/XR acute abdomen series IMPRESSION: NO ACUTE PLAIN FILM FINDINGS. Impression dictated by: Lorraine Tony M.D. 06/27/2025 12:48 PM Dictation Location: [place] [address] Electronically authenticated by: [id number] Y Date: 06/27/2025 12:48
== END 2025-06-27 11:26 | disposition home or self-care (01) ==
PROVIDERS: PCP Family Medicine; Visit Provider Family Medicine
DX: K52.9 Noninfective gastroenteritis and colitis, unspecified (principal)
CPT/HCPCS: 74022